=== PATIENT | female | born 1950 | race African-American/Black ===

== ENCOUNTER 2018-03-28 13:11 | Inpatient (IN) | payer MEDICARE, MEDICAID ==
[~2018-03-28] VITALS: Ht 160 cm; Wt 55.0 kg
[~2018-03-28 13:11] MED LIST: ALBU18HF2; AM250 PO; AMLO5TAB4; ATOR20TA65 MT; BENZ2TAB7; DAPS100T PO; ELVI1TAB3 MT; GABA300C; NIFE60TA10 PO; SERT50TA12 MT
[2018-03-28] MEDS ORDERED: METHYLPREDNISOLONE SOD SUCC 125 MG/2 ML VIAL IV STA (14:31)
[2018-03-28] MEDS ORDERED: ONDANSETRON HCL 4MG/2ML INJ IV STA (14:31)
[2018-03-28] MEDS ORDERED: MAGNESIUM 2 G PREMIX 50 ML IV ONE (14:45)
[2018-03-28] MEDS ORDERED: MORPHINE SULFATE 10 MG/ML CPJ IV ONE (14:45)
[2018-03-28] MEDS ORDERED: DIPHENHYDRAMINE 50MG/ML VIAL IV ONE ×2 (14:45→16:30)
[2018-03-28] MEDS ORDERED: IPRATROPIUM/ALBUTEROL 0.5-3(2.5)MG/3ML NEB HHN ONE (14:45)
[2018-03-28] MEDS ORDERED: LEVOFLOXACIN 750MG PREMIX 150 ML IV ONE (14:45)
[2018-03-28 14:48] LABS: EOSINOPHILS % 4.9 % (0.0-5.0); HEMATOCRIT. 37.7 % (36.0-48.0); HEMOGLOBIN. 12.7 g/dL (12.0-16.0); LYMPHOCYTES % 23.1 % (20.0-50.0); MEAN CORPUSCULAR HEMOGLOBIN 30.5 pg (28.0-32.0); MEAN CORPUSCULAR VOLUME 90.4 fL (81.0-99.0); MEAN PLATELET VOLUME 7.8 fl (7.4-10.4); MONOCYTES % 5.9 % (2.0-8.0); NEUTROPHILS % 65.1 % (40.0-76.0); PLATELET 223 x1000/uL (130-400); RED BLOOD CELL COUNT 4.18 mill/uL (4.2-5.4); RED CELL DISTRIBUTION WIDTH 14.8 % (11.6-14.6)
[2018-03-28 14:54] LABS: CHLORIDE 108 mEq/L (98-107)
[2018-03-28 14:58] LABS: ETHANOL BLOOD < 10 mg/dL
[2018-03-28 15:11] LABS: BG BASE EXCESS -2.5 mmol/L (-2.0-2.0); BG FRACTION INSPIRED OXYGEN 21; BG HCO3 ACT 22.3 mmol/L (22.0-26.0); BG OXYGEN SATURATION 88.8 % (92.0-98.5); BG PCO2 38.6 mmHg (35.0-45.0); BG SAMPLE SITE RIGHT BRACHIAL; BG TOTAL HEMOGLOBIN 12.5 g/dL (12.0-18.0); BG VENT MODE ROOM AIR
[2018-03-28 15:19] LABS: PARTIAL THROMBOPLASTIN TIME 24.5 sec (23.4-31.0); PROTHROMBIN TIME 9.7 sec (9.1-11.1)
[2018-03-28] MEDS ORDERED: DIPHENHYDRAMINE 50MG/ML VIAL ONE (16:01)
[2018-03-28] MEDS ORDERED: ASPIRIN 325MG EC TABLET PO ONE (16:30)
[2018-03-28] MEDS ORDERED: DOCUSATE SODIUM 100MG CAPSULE PO PRN (18:15)
[2018-03-28] MEDS ORDERED: CLONIDINE 0.1MG TABLET PO PRN (18:15)
[2018-03-28] MEDS ORDERED: HYDROCODONE/ACETAMINOPHEN 5/325MG TABLET PO PRN (18:15)
[2018-03-28] MEDS ORDERED: MAGNESIUM/ALUMINUM HYDROXIDE/SIMETHICONE 30ML UDC PO PRN (18:15)
[2018-03-28] MEDS ORDERED: GUAIFENESIN 200MG/10ML SUGAR FREE UDC PO PRN (18:15)
[2018-03-28] MEDS ORDERED: IPRATROPIUM/ALBUTEROL 0.5-3(2.5)MG/3ML NEB INH PRN (18:15)
[2018-03-28] MEDS ORDERED: ACETAMINOPHEN 325MG TABLET PO PRN (18:15)
[2018-03-28] MEDS ORDERED: ONDANSETRON HCL 4MG/2ML INJ IV PRN (18:15)
[2018-03-28 20:15] VITALS: BP 143/66
[2018-03-28] MEDS ORDERED: BUDESONIDE 0.5MG/2ML NEB HHN SCH (22:00)
[2018-03-28] MEDS ORDERED: CEFTRIAXONE 1 G PREMIX 50 ML IV SCH (22:00)
[2018-03-28] MEDS ORDERED: SODIUM POLYSTYRENE SULFONATE 15 G/60 ML BOT PO NR (22:00)
[2018-03-28] MEDS: METHYLPREDNISOLONE SOD SUCC 125 MG/2 ML VIAL IV SCH (22:51)
[2018-03-28] MEDS: ENOXAPARIN 30MG/0.3ML SYR SUBCUT SCH (22:51)
[2018-03-29] VITALS: BP 152/92
[2018-03-29] MEDS: IPRATROPIUM/ALBUTEROL 0.5-3(2.5)MG/3ML NEB INH SCH ×6 (01:00→21:24)
[2018-03-29 04:00] VITALS: BP 148/70
[2018-03-29] MEDS: METHYLPREDNISOLONE SOD SUCC 125 MG/2 ML VIAL IV SCH (06:33)
[2018-03-29 09:09] VITALS: BP 139/77
[2018-03-29 09:29] LABS: HEMATOCRIT. 36.3 % (36.0-48.0); HEMOGLOBIN. 11.8 g/dL (12.0-16.0); MEAN CORPUSCULAR HEMOGLOBIN 29.9 pg (28.0-32.0); MEAN CORPUSCULAR VOLUME 91.7 fL (81.0-99.0); MEAN PLATELET VOLUME 8.3 fl (7.4-10.4); PLATELET 203 x1000/uL (130-400); RED BLOOD CELL COUNT 3.96 mill/uL (4.2-5.4); RED CELL DISTRIBUTION WIDTH 14.4 % (11.6-14.6)
[2018-03-29] MEDS: DIPHENHYDRAMINE 25MG CAPSULE PO PRN ×2 (09:53→20:34)
[2018-03-29 09:59] LABS: CREATINE KINASE MB FRACTION 2.4 ng/mL (0.5-3.6)
[2018-03-29] MEDS ORDERED: DIPHENHYDRAMINE 25MG CAPSULE PO PRN (10:00)
[2018-03-29] MEDS ORDERED: AMLODIPINE 2.5MG TABLET PO SCH (10:30)
[2018-03-29] MEDS: ASPIRIN 81MG EC TABLET PO SCH (11:43)
[2018-03-29] MEDS ORDERED: [UNRECOGNIZED DRUG - OTHER] MT SCH (12:00)
[2018-03-29 12:22] LABS: T4 FREE 0.8 ng/dL (0.76-1.46)
[2018-03-29] MEDS: SERTRALINE HCL 50MG TABLET PO SCH (12:30)
[2018-03-29 12:45] VITALS: BP 160/82
[2018-03-29 12:49] LABS: CLARITY URINE CLEAR (CLEAR); COLOR URINE YELLOW (YELLOW); KETONES URINE NEGATIVE (NEGATIVE); LEUKOCYTE ESTERASE URINE NEGATIVE (NEGATIVE); NITRITE URINE NEGATIVE (NEGATIVE); OCCULT BLOOD URINE NEGATIVE (NEGATIVE); PROTEIN URINE 3+ (NEGATIVE); SPECIFIC GRAVITY URINE 1.014 (1.005-1.030); UROBILINOGEN URINE 0.2 E.U./dL (0.2-1.0)
[2018-03-29 13:03] LABS: *BARBITURATES SCREEN URINE NEGATIVE (NEGATIVE)
[2018-03-29 13:04] LABS: *AMPHETAMINES SCREEN URINE NEGATIVE (NEGATIVE); *BENZODIAZEPINES SCREEN URINE NEGATIVE (NEGATIVE); *COCAINE SCREEN URINE NEGATIVE (NEGATIVE); METHADONE URINE SCREEN NEGATIVE (NEGATIVE); OPIATES URINE SCREEN PRESUMTIVE POSITIVE (NEGATIVE)
[2018-03-29 13:05] LABS: CANNABINOID URINE SCREEN NEGATIVE (NEGATIVE); PHENCYCLIDINE URINE SCREEN NEGATIVE (NEGATIVE)
[2018-03-29] MEDS: DOCUSATE SODIUM 100MG CAPSULE PO SCH (16:14)
[2018-03-29] MEDS: SODIUM CHLORIDE 0.9% 1,000 ML IV SCH (16:14)
[2018-03-29 16:43] VITALS: BP 156/89
[2018-03-29] MEDS ORDERED: CEFTRIAXONE 1 G PREMIX 50 ML IV SCH (20:00)
[2018-03-29] MEDS: AMLODIPINE 5MG TABLET PO SCH (20:35)
[2018-03-29] MEDS: ENOXAPARIN 30MG/0.3ML SYR SUBCUT SCH (20:36)
[2018-03-29 20:48] VITALS: BP 139/98
[2018-03-29] MEDS ORDERED: POLYETHYLENE GLYCOL 3350 (17GM) 1 DOSE PACK PO SCH (21:00)
[2018-03-29] MEDS ORDERED: ATORVASTATIN CALCIUM 20MG TABLET PO SCH (21:00)
[2018-03-29] MEDS ORDERED: BENZTROPINE MESYLATE 1MG TABLET PO SCH (21:00)
[2018-03-30] VITALS (7 sets, daily range): BP systolic 140–164; BP diastolic 74–92
[2018-03-30] MEDS: IPRATROPIUM/ALBUTEROL 0.5-3(2.5)MG/3ML NEB INH SCH ×5 (00:41→15:46)
[2018-03-30] MEDS: SODIUM CHLORIDE 0.9% 1,000 ML IV SCH ×2 (05:29→08:44)
[2018-03-30 06:30] LABS: BASOPHILS % 0.4 % (0.0-2.0); HEMATOCRIT. 35.7 % (36.0-48.0); HEMOGLOBIN. 11.5 g/dL (12.0-16.0); LYMPHOCYTES % 9.1 % (20.0-50.0); MEAN CORPUSCULAR HEMOGLOBIN 29.6 pg (28.0-32.0); MEAN CORPUSCULAR VOLUME 91.9 fL (81.0-99.0); MONOCYTES % 3.9 % (2.0-8.0); NEUTROPHILS % 86.6 % (40.0-76.0); RED BLOOD CELL COUNT 3.88 mill/uL (4.2-5.4)
[2018-03-30 06:56] LABS: CHLORIDE 108 mEq/L (98-107)
[2018-03-30 07:04] LABS: LDL CHOLESTEROL 102 mg/dL (5-100)
[2018-03-30 07:05] LABS: CREATINE KINASE 65 IU/L (26-192); PHOSPHORUS 3.9 mg/dL (2.5-4.9)
[2018-03-30 07:08] LABS: HDL CHOLESTEROL 89 mg/dL (40-59)
[2018-03-30 07:25] LABS: PLATELET ESTIMATE NORMAL
[2018-03-30] MEDS: DOCUSATE SODIUM 100MG CAPSULE PO SCH ×2 (08:43→17:55)
[2018-03-30] MEDS: AMLODIPINE 5MG TABLET PO SCH (08:43)
[2018-03-30] MEDS: SERTRALINE HCL 50MG TABLET PO SCH (08:43)
[2018-03-30] MEDS: ASPIRIN 81MG EC TABLET PO SCH (08:43)
[2018-03-30] MEDS: DIPHENHYDRAMINE 25MG CAPSULE PO PRN (08:48)
[2018-03-30] MEDS ORDERED: DAPSONE 100MG TABLET PO SCH (09:00)
[2018-03-30 09:07] LABS: % CD 3 POS. LYMPHOCYTES 64.4 % (57.5-86.2); % CD 4 POS. LYMPHOCYTES 22.3 % (30.8-58.5); % CD 8 POS. LYMPH 42.4 % (12.0-35.5); ABSOLUTE CD 3 193 /uL (622-2402); ABSOLUTE CD 4 HELPER 67 /uL (359-1519); ABSOLUTE CD 8 SUPPRESSOR 127 /uL (109-897); ABSOLUTE LYMPHOCYTES 0.3 x10E3/uL (0.7-3.1); ABSOLUTE MONOCYTES 0.1 x10E3/uL (0.1-0.9); ABSOLUTE NEUTROPHILS 8.7 x10E3/uL (1.4-7.0); BASOPHILS 0 % (Not Estab.); CD4/CD8 RATIO 0.53 (0.92-3.72); HEMATOCRIT 34.3 % (34.0-46.6); HEMOGLOBIN 11.5 g/dL (11.1-15.9); IMMATURE GRANULOCYTES 0 % (Not Estab.); LYMPHOCYTES 4 % (Not Estab.); MEAN CORPUSCULAR HGB CONC. 33.5 g/dL (31.5-35.7); MEAN CORPUSCULAR VOLUME 90 fL (79-97); MONOCYTES 1 % (Not Estab.); NEUTROPHILS 95 % (Not Estab.); PLATELETS 203 x10E3/uL (150-379); RBC 3.83 x10E6/uL (3.77-5.28); RED CELL DISTRIBUTION WIDTH 14.1 % (12.3-15.4); WBC 9.1 x10E3/uL (3.4-10.8)
[2018-03-30] MEDS ORDERED: HYDRALAZINE HCL 25MG TABLET PO SCH (09:30)
[2018-03-30 13:06] LABS: MEAN PLATELET VOLUME 9.3 fl (7.4-10.4); PLATELET 152 x1000/uL (130-400)
[2018-03-30] MEDS: POLYVINYL ALCOHOL OPHTH DROPS 15ML BOTHEYE SCH ×2 (13:23→17:54)
[2018-03-30] MEDS ORDERED: AZITHROMYCIN 500 MG TABLET PO SCH (16:00)
[2018-03-30] MEDS ORDERED: MONTELUKAST SODIUM 10MG TABLET PO SCH (17:00)
[2018-03-30] MEDS ORDERED: FAMOTIDINE 20MG/2ML VIAL IV SCH (17:00)
[2018-03-30] MEDS ORDERED: LORATADINE 10MG TABLET PO SCH (21:00)
[2018-03-30] MEDS ORDERED: ENOXAPARIN 40MG/0.4ML SYR SUBCUT SCH (21:00)
[2018-04-02 13:06] LABS: *HIV-1 RNA BY PCR <20 copies/mL (.)
[2018-04-02 17:10] LABS: HIV 1 ABS Positive (Negative); HIV 2 ABS Negative (Negative); HIV SCREEN 4G Reactive (Non Reactive); INTERPRETATION HIV-1 Positive (.)
== END 2018-03-30 20:25 | disposition home or self-care (01) | DRG 890 ==
LOC: ER 13:11 → 6WST 17:08 → EDBEDREQ 17:12 → ENRESERV 18:26
PROVIDERS: ADMIT Internal Medicine; ATTEND Internal Medicine
DX: J96.20 Acute and chronic respiratory failure, unspecified whether with hypoxia or hypercapnia (principal); B20 Human immunodeficiency virus [HIV] disease; N17.9 Acute kidney failure, unspecified; E44.0 Moderate protein-calorie malnutrition; J44.1 Chronic obstructive pulmonary disease with (acute) exacerbation; E87.5 Hyperkalemia; G62.9 Polyneuropathy, unspecified; I15.1 Hypertension secondary to other renal disorders; N18.9 Chronic kidney disease, unspecified; L29.9 Pruritus, unspecified; E78.5 Hyperlipidemia, unspecified; F33.9 Major depressive disorder, recurrent, unspecified; R09.1 Pleurisy; F41.9 Anxiety disorder, unspecified; F19.10 Other psychoactive substance abuse, uncomplicated; H01.009 Unspecified blepharitis unspecified eye, unspecified eyelid; G24.01 Drug induced subacute dyskinesia; D64.9 Anemia, unspecified; E78.00 Pure hypercholesterolemia, unspecified; H54.62 Unqualified visual loss, left eye, normal vision right eye; H26.9 Unspecified cataract; I50.9 Heart failure, unspecified; R09.02 Hypoxemia; Z59.0 Homelessness; Z82.49 Family history of ischemic heart disease and other diseases of the circulatory system; Z83.3 Family history of diabetes mellitus; Z98.51 Tubal ligation status; Z99.81 Dependence on supplemental oxygen; Z72.0 Tobacco use; Z88.2 Allergy status to sulfonamides; Z68.21 Body mass index [BMI] 21.0-21.9, adult
CPT/HCPCS: 36415; 36600; 71045; 76770; 80048; 80061; 80305; 82375; 82550; 82553; 82570; 82805; 83605; 83735; 83880; 84100; 84156; 84300; 84439; 84443; 84481; 84484; 85379; 86359; 86360; 86701; 86702; 87070; 87389; 87536; 93005; 93306; 93970; 94640; 96374; 96375; 97162; 99285; G0482; J0696; J1200; J1650; J1956; J2270; J2405; J2930; J3475; J3490; J7030; J7050; J7620; J7626; Q0163